=== PATIENT | male | born 1955 | race Caucasian/White ===

== ENCOUNTER 2016-05-12 00:39 | Inpatient (IN) | payer MEDICARE ==
[~2016-05-12] VITALS: Ht 177.8 cm; Wt 73.5 kg
--- NOTE | ~2016-05-12 | FD ---
ADMIT: 05/12/2016 RM/LOC: 414 [facility] MR#: [id number] [address] [address] [address] [place] [phone] Final Diagnosis SEX: M AGE: 61 : 1955 ADMISSION DATE: 05/12/2016 DISCHARGE DATE: 05/13/2016 FINAL DIAGNOSES: 1. Right knee contusion. 2. Benign prostatic hypertrophy with history of recurrent prostatitis and prior prostatic abscess. 3. Diabetes mellitus type 2, poorly controlled with noncompliance. 4. Benign essential hypertension. 5. Erectile dysfunction status post penile implant. 6. Prior right total knee arthroplasty. 7. Lumbar fusions. 8. Prostatitis. PROCEDURES: Include IV antibiotics, fluids, and diabetic teaching. Errol Mayers MD/ imlliel JOB #: [id number] CC: Errol Mayers MD, Attending Physician Errol Mayers MD, Family Physician
[~2016-05-12 00:39] MED LIST: ASA325 MG PO; ASCORBIC ACID250 MG PO; CELEBREX200 MG PO; DULCOLAX-DPS10 MG PR; FEOSOL-DPS325 MG PO; FLOMAX DPS0.4 MG PO; GLUCAGON1 MG/ML IM; GLUCOPHAGE-DPS500 MG PO; GLUCOTROL DPS10 MG PO; GLUTOSE 1537.5 GM PO; HYDROCODONE 5MG/5 MG PO; K-TAB ER10 MEQ PO; LEVAQUIN DPS500 MG PO; LEVEMIR100 UNIT/1 SQ; LOVENOX DP40 MG/0.4 SQ; MAALOX DPS30 ML PO; MELATONIN3 MG PO; MILK OF MAGNESI10 ML PO; MIRALAX17 GM PO; NEURONTIN DPS300 MG PO; NITROSTAT0.4 MG SL; NORCO 5-325 TA1 EACH PO; NORVASC5 MG PO; NOVOLIN 70100 UNITS/ SQ; NOVOLIN R,100 UNITS/ SQ; ONGLYZA5 MG PO; SENOKOT S1 TAB PO; SURFAK DPS240 MG PO; TYLENOL DPS325 MG PO; ULTRAM DPS50 MG PO; ZESTRIL DPS10 MG PO
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
[2016-05-13] MEDS ORDERED: GLUCOTROL DPS5 MG PO (21:21)
[2016-05-13] MEDS ORDERED: FLOMAX DPS0.4 MG PO (21:21)
[2016-05-13] MEDS ORDERED: GLUCOPHAGE-DPS500 MG PO (21:21)
[2016-05-13] MEDS ORDERED: ULTRAM DPS50 MG PO (21:21)
[2016-05-13] MEDS ORDERED: CIPRO DPS500 MG PO (21:21)
[2016-05-13] MEDS ORDERED: OMNICEF DPS300 MG PO (21:22)
[2016-05-13] MEDS ORDERED: TYLENOL DPS325 MG PO (21:22)
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
--- NOTE | 2016-06-07 10:12 | CO ---
ADMIT: 05/12/2016 RM/LOC: 414 [facility] MR#: [id number] [address] [address] [address] [place] [phone] Consultation SEX: M AGE: 61 : 1955 DATE OF CONSULTATION: 05/12/2016 ATTENDING PHYSICIAN: Errol Mayers CONSULTING PHYSICIAN: Wyatt Benavides MD REASON FOR CONSULTATION: 1. Fever. 2. Possible prostatitis/UTI. 3. Benign prostate hypertrophy. HISTORY OF PRESENT ILLNESS: The patient is a pleasant 61-year-old, male. He was seen with nurse. He does provide kinesiologist Services. He is very well known to us. He has a history of non insulin dependent diabetes and very poor compliance with medication as well as followup. The patient is under the care for benign prostatic hypertrophy, currently maintained on Flomax. He does have a history of prostatitis as well as urinary tract infection. The last positive urine culture in our office was back in 2010 but he does have a positive urine culture from February 12, 2016. This demonstrated Klebsiella, which was resistant to nitrofurantoin as well as ampicillin. The patient does have a distant history of prostatic abscess which was managed with transurethral decompression. The patient does have an indwelling inflatable penile prosthesis, placed by Dr. Cantu. He has not been using this. The patient was admitted with fever after digital rectal examination; however, he initially presented to the emergency room with complaints of leg pain. The patient, after MITZI, developed chills as well as a fever. He has been afebrile since admission, however. The patient's urinalysis on admission demonstrated white cells as well as red cells. This will be summarized more definitely later. states that recently, the patient has been complaining of decreased force of stream as well as mild burning with urination. The patient states that he is continuing on his Flomax. There has been no hematuria. He denies any low abdominal pain. Denies any penile pain or inflammation. Denies any scrotal pain or swelling. The patient's previous E. coli urine cultures demonstrated resistance to ampicillin as well as Bactrim. He has had Enterococcus in his urine before, which demonstrated nice sensitivity to fluoroquinolones. Culture is pending at the present time. His creatinine is fine. His white blood cell count is only mildly elevated. PAST MEDICAL HISTORY: Significant for: 1. Non-insulin dependent diabetes. 2. History of urinary tract infection. 3. Benign prostatic hypertrophy. 4. Noncompliance. 5. Erectile dysfunction, status post inflatable penile prosthesis. MEDICATIONS: At home include: 1. Metformin. 2. Gabapentin. 3. Celecoxib. ADMIT: 05/12/2016 RM/LOC: 414 [facility] MR#: [id number] [address] [address] [address] Consultation SEX: M AGE: 61 : 1955 4. Tramadol. 5. Glipizide. 6. Flomax. Inpatient medications also include: 1. Rocephin. 2. As well as Levaquin. ALLERGIES: NO KNOWN DRUG ALLERGIES. PAST SURGICAL HISTORY: 1. Inflatable penile prosthesis insertion. 2. Transurethral decompression of prostatic abscess. 3. Previous suprapubic catheter placement which has since been removed. PHYSICAL EXAMINATION: GENERAL: The patient is pleasant, in no apparent distress. VITAL SIGNS: He is afebrile. Vital signs are stable. ABDOMEN: Otherwise soft. No suprapubic mass or tenderness. No guarding or rebound. All incisions are well healed. There is no tenderness or erythema over the inflatable penile prosthesis reservoir. BACK: There is no costovertebral angle tenderness. : The patient is uncircumcised. There is no phimosis. There is no paraphimosis. There is no lesions overlying the glans penis or penile shaft. The inflatable penile prosthesis is normal to palpation. It is not tender to palpation. There is no crepitus. There is no erythema of the penile shaft. Testes descended bilaterally without mass or tenderness. No epididymal abnormalities such as tenderness or induration. The pump for the inflatable penile prosthesis is located in the right hemiscrotum. Again, this is nontender. There is no scrotal erythema. There is no crepitus. RECTAL: General rectal exam was performed, which demonstrates 40 g prostate, not terribly boggy to palpation, although it was not really aggressive here. There is no obvious fluctuance and there is no tenderness to exam. LABORATORY DATA: Sodium 133, potassium 3.8, BUN and creatinine of 15 and 1.0, glucose 286. White blood cell count 11.2, hematocrit 43.4, platelet count 241. Urinalysis demonstrated pH of 5.0, 32 whites, 4 reds, no bacteria. Culture pending. CT scan of the abdomen and pelvis demonstrates specifically no evidence of upper tract abnormalities such as stone or hydronephrosis. The bladder was unremarkable. It is not terribly distended. Penile implant reservoir was noted in the upper right retropubic space and unremarkable. Prostate gland is enlarged. There is no abscess identified. There is a little bit of haziness around this making think we might be dealing with just an early prostatitis. The corporal inserts of the penile prosthesis appear unremarkable. There is no fluid collections or inflammation around the base of the penis. It looked like one of the corporal inserts may have crossed from the right side to the left side. I will review this with Dr. Cantu [facility] ADMIT: 05/12/2016 RM/LOC: 414 [facility] MR#: [id number] [address] [address] [address] [place] [address] Consultation SEX: M AGE: 61 : 1955 ASSESSMENT: 1. Fever. 2. Possible urinary tract infection/prostatitis. 3. Benign prostatic hypertrophy with slight progression of symptoms based on history. RECOMMENDATIONS: 1. Agree with antibiotic choices based on previous culture data. 2. We will increase Flomax to 0.4 mg p.o. b.i.d. 3. Do not recommend Alvarado catheter placement. This may complicate treatment of his possible prostatitis. Wyatt Benavides MD/ paula JOB #: [id number] CC: Errol Mayers, Attending Physician Errol Mayers, Family Physician
== END 2016-05-13 18:33 | disposition home or self-care (01) | DRG 728 ==
LOC: ER 00:39 → 4PCU 05:28
PROVIDERS: ADMIT Family Medicine
DX: N41.9 Inflammatory disease of prostate, unspecified (principal); E11.65 Type 2 diabetes mellitus with hyperglycemia; I10 Essential (primary) hypertension; N39.0 Urinary tract infection, site not specified; Z23 Encounter for immunization; N40.0 Benign prostatic hyperplasia without lower urinary tract symptoms; S80.01XA Contusion of right knee, initial encounter; V89.2XXA Person injured in unspecified motor-vehicle accident, traffic, initial encounter; N52.9 Male erectile dysfunction, unspecified; Z96.0 Presence of urogenital implants; Z98.1 Arthrodesis status; Z79.84 Long term (current) use of oral hypoglycemic drugs; Z91.19 Patient's noncompliance with other medical treatment and regimen; Z96.651 Presence of right artificial knee joint; Z87.891 Personal history of nicotine dependence